=== PATIENT | male | born 2000 | race Caucasian/White ===

== ENCOUNTER 2025-04-12 16:26 | Emergency (ER) | payer BC, SELFPAY ==
[2025-04-12 16:27] VITALS: BMI 25.0
[2025-04-12 16:30] VITALS: BP 145/76; PULSE 64; RESP 16; TEMP 36.7; O2SAT 100
--- NOTE | 2025-04-12 16:37 | XR_ITS ---
Examination: PA chest single view TECHNIQUE: Upright PA chest single view Date and time: April 12, 2025 1641 hours INDICATIONS: Chest pain and shortness of breath today. FINDINGS: Normal heart size. Lungs are clear. Osseous structures are intact. IMPRESSION: No active disease.
--- NOTE | 2025-04-12 16:38 | PD.EDNV ---
Nausea/Vomit./Diarrhea-RME/HPI General Chief complaint: Nausea/Vomiting/Diarrhea Stated complaint: N/V/ABD PAIN SINCE 6AM Time Seen by Provider: 04/12/25 16:36 Arrival date/time: 04/12/25 16:26 RME / HPI RME / HPI Narrative: 24-year-old male patient came in for evaluation regarding vomiting. Patient woke up this morning with vomiting several the last according to him nonbloody. Associated with abdominal discomfort. Patient smoked marijuana on a regular basis. Patient felt super dehydrated. Complained of generalized body weakness. Denies any other complaints. Patient has been here before for the same complaints. Was told that is secondary to marijuana also. Related Data Previous Rx's ?Medication ?Instructions ?Recorded ondansetron HCl 4 mg tablet 4 mg PO Q6H PRN nausea and 04/02/21 (Zofran) vomiting #30 tabs metoclopramide HCl 10 mg tablet 10 mg PO Q6H PRN nausea and 04/12/25 (Reglan) vomiting #20 tabs Allergies Allergy/AdvReac Type Severity Reaction Status Date / Time No Known Allergies Allergy Verified 04/12/25 16:29 Review of Systems Review of Systems Narrative Review of Systems: Review of system reviewed and within normal limits except mentioned in HPI ED Exam Narrative Physical exam: VITAL SIGNS: Reviewed. GENERAL APPEARANCE: Alert and interactive, follows commands, no acute distress, HEAD AND FACE: Non-traumatic. ENT: PERRL, pink conjunctivitis, eyelid no trauma, Mucous membrane dry mucosa NECK: Supple, nontender, no nuchal rigidity. CHEST: No tenderness, no crepitus, no paradoxical movement, no retractions. LUNGS: Clear, well ventilated, symmetric, no rales, no wheezing, no ronchi, no stridor, good breath sounds bilaterally. HEART: Regular rate, regular rhythm, no murmur, no gallops. ABDOMEN: Soft, positive bowel sounds, nondistended, no guarding, nontender, no rebound, no masses, RECTAL: Deferred. GENITAL: Deferred. NEUROLOGICAL: Gross motor function intact sensory function intact, Appropriate for age. MUSCULOSKELETAL: low back nontender, full range of motion. EXTREMITIES: Nontender, full range of motion. SKIN: Color pink, dry, no rash, no lacerations, no abrasions, no contusions. LYMPHATICS: Deferred. Course Quality Measures none Orders Category Date Time Status XR chest 1V Stat Exams 04/12/25 16:37 Completed CBC Stat Lab 04/12/25 16:48 Completed Comprehensive Metabolic Panel Stat Lab 04/12/25 16:48 Completed Drug Screen,Urine Stat Lab 04/12/25 19:02 Completed Partial Thromboplastin Time Stat Lab 04/12/25 16:48 Completed Urinalysis, C/S if Indicated Stat Lab 04/12/25 19:00 Completed Famotidine Inj [Pepcid Inj] Med 04/12/25 16:38 Discontinued 20 mg IVP X1 ONE Haloperidol Lactate [Haldol Inj] Med 04/12/25 16:38 Discontinued 5 mg IM X1 ONE Haloperidol Lactate [Haldol Inj] Med 04/12/25 17:34 Discontinued 5 mg IV X1 ONE Metoclopramide Inj [Reglan Inj] Med 04/12/25 16:37 Discontinued 10 mg IVP X1 ONE Ringers Lactated 1000 ml [Lactated Ringers] 1,000 ml Med 04/12/25 16:37 Discontinued IV 999 mls/hr Ringers Lactated 1000 ml [Lactated Ringers] 1,000 ml Med 04/12/25 16:37 Discontinued IV 999 mls/hr Vital Signs Vital signs: Vital Signs Temperature 98.1 F 04/12/25 16:30 Pulse Rate 64 04/12/25 16:30 Respiratory Rate 16 04/12/25 16:30 Blood Pressure 145/76 H 04/12/25 16:30 Pulse Oximetry (%) 100 04/12/25 16:30 Oxygen Delivery Method Room Air 04/12/25 16:30 Nausea/Vomiting/Diarrhea MDM Narrative MDM Narrative:: 24-year-old male patient came in for evaluation regarding vomiting. Patient woke up this morning with vomiting several the last according to him nonbloody. Associated with abdominal discomfort. Patient smoked marijuana on a regular basis. Patient felt super dehydrated. Complained of generalized body weakness. Denies any other complaints. Patient has been here before for the same complaints. Was told that is secondary to marijuana also. Patient's workup today all came back unremarkable. Urinalysis no UTI. Patient received 2 L of IV fluids, Haldol, Reglan, Pepcid, with complete resolution of symptoms. No recurrence of vomiting noted in the ED. Patient tolerating p.o. fluids. Patient was advised to stop smoking marijuana which could be a reason for his vomiting. Patient agrees with the plan Patient data External records reviewed:: None Clinical information provided by:: patient Social determinants that could affect healthcare access:: substance use Patient has the following chronic illnesses:: None How is presenting disease/condition affected by chronic disease/condition?: no chronic disease Evaluation data The following diagnostics were reviewed and interpreted by me:: lab results and radiology exam(s) Lab and/or radiology exams considered but not ordered:: None Interpretation Summary: Chest x-ray came back unremarkable. No aspiration pneumonia noted. Medications / Prescriptions Medications / Prescriptions considered but not ordered:: None Medication administrations:: Medication Administration History Discontinued Medications Famotidine (Famotidine Inj 10 Mg/Ml Vial 2 Ml) 20 mg IVP X1 ONE Stop: 04/12/25 16:39 Last Admin: 04/12/25 17:46 Dose: 20 mg Documented By: FRAN Haloperidol Lactate (Haloperidol Lact Inj 5 Mg/Ml Vial) 5 mg IM X1 ONE Stop: 04/12/25 16:39 Last Admin: 04/12/25 17:35 Dose: Not Given Documented By: VG Non-Admin Reason: Cancelled by Provider Haloperidol Lactate (Haloperidol Lact Inj 5 Mg/Ml Vial) 5 mg IV X1 ONE Stop: 04/12/25 17:35 Last Admin: 04/12/25 17:47 Dose: 5 mg Documented By: FRAN Lactated Ringer's (Lactated Ringers) 1,000 mls @ 999 mls/hr IV .Q1H1M ONE Stop: 04/12/25 17:37 Last Infusion: 04/12/25 19:04 Dose: Infused Documented By: Admin: 04/12/25 17:41 Dose: 999 mls/hr Documented By: FRAN Lactated Ringer's (Lactated Ringers) 1,000 mls @ 999 mls/hr IV .Q1H1M ONE Stop: 04/12/25 17:37 Last Infusion: 04/12/25 18:53 Dose: Infused Documented By: Admin: 04/12/25 17:42 Dose: 999 mls/hr Documented By: FRAN Metoclopramide HCl (Metoclopramide Inj 5 Mg/Ml Vial 2 Ml) 10 mg IVP X1 ONE; Protocol Stop: 04/12/25 16:38 Last Admin: 04/12/25 17:45 Dose: 10 mg Documented By: VG IV fluids, Haldol Pepcid and Reglan with complete resolution of symptoms Consultations Consultation(s) initiated? (list below): No Diagnosis Nausea Differential Diagnosis: food poisoning, gastroenteritis and drug-induced nausea and vomiting Most likely diagnosis given after review of the tests above:: Cannabinoid hyperemesis syndrome Admission Indicated Admission indicated?: not indicated Admission Request Was there a request for admission?: No Disposition Plan Disposition Plan: Discharge Discharge Attestation Discharge Attestation: The patient and all family members were given an opportunity to ask questions and understood the discharge instructions. Discharge instructions specifically effects, indications for sooner follow up or return to the emergency department, and the expected course of current diagnosis. Patient condition: Stable Discharge Plan Plan Patient Disposition: HOME (Self Care) Discharge Disposition comment: Stable Prescriptions/Referrals Prescriptions/Med Rec: New metoclopramide HCl [Reglan] 10 mg tablet 10 mg PO Q6H PRN (Reason: nausea and vomiting) Qty: 20 0RF No Action ondansetron HCl [Zofran] 4 mg tablet 4 mg PO Q6H PRN (Reason: nausea and vomiting) Qty: 30 0RF Referrals: DENA OVIEDO [Primary Care Provider] - In 1 week Problem List Clinical Impression: Cannabinoid hyperemesis syndrome Patient/Caregiver Discharge Instructions Discharge Activity: activity as tolerated Education Materials: Self-Care for Vomiting and Diarrhea Additional Instructions: Thank you for the opportunity for serving you today. You are stable for discharged . You are advised to: Follow-up with your PCP in 1 to 2 days Return to ED for worsening of symptoms Increase oral fluids Please stop smoking marijuana. Print Language: Hungarian Stand Alone Forms: Cara Award Info., Patient Portal Info Letter PA/SURVEYING OR SPATIAL SCIENCE TECHNICIAN Supervising Physician PA/BLANCA Supervising Physician: MD Riya
[2025-04-12 17:07] LABS: Basophils % (Auto) 0 % (0-2.5); Eosinophils % (Auto) 0 % (0-10); Hematocrit 40.5 % (41.0-53.0); Hemoglobin 14.7 g/dL (13.5-16.0); Immature Granulocytes % (Auto) 0 % (0-0); Immature Granulocytes Auto 0.05 Thou/mm3 (0.00-0.00); Lymphocytes # (Auto) 1.3 Thou/mm3 (1.0-4.8); Lymphocytes % (Auto) 11 % (10-50); Mean Corpuscular HGB Conc 36.3 g/dl (31.0-37.0); Mean Corpuscular Hemoglobin 29.6 pg (25.0-35.0); Mean Corpuscular Volume 82 fL (80-100); Monocytes # (Auto) 0.7 Thou/mm3 (0.0-0.8); Monocytes % (Auto) 6 % (0-12); Neutrophils # (Auto) 9.7 Thou/mm3 (1.8-7.7); Neutrophils % (Auto) 83 % (37-80); Nucleated Red Blood Cell % 0 /100 WBC (0); Platelet Count 318 Thou/mm3 (140-440); RDW Standard Deviation 36.9 fL (35.1-43.9); Red Blood Count 4.96 Miln/mm3 (4.50-5.90); White Blood Count 11.7 Thou/mm3 (3.8-10.6)
[2025-04-12 17:13] LABS: Partial Thromboplastin Time 23.6 Seconds (22.0-36.0)
[2025-04-12 17:22] LABS: Alanine Aminotransferase 25 U/L (10-49); Alkaline Phosphatase 66 U/L (46-116); Anion Gap 13 (7-16); Aspartate Amino Transferase 19 U/L (0-34); BUN/Creatinine Ratio 9 Ratio (12-20); Bilirubin,Total 0.8 mg/dL (0.3-1.2); Blood Urea Nitrogen 10 mg/dL (9-23); Calcium 10.2 mg/dL (8.3-10.6); Calcium (Corrected) 10.2 mg/dL (8.5-10.1); Carbon Dioxide 24.8 mMol/L (20.0-31.0); Chloride 104 mMol/L (98-107); Creatinine (Component) 1.1 mg/dL (0.6-1.3); Estimated Creatinine Clearance 92.6 mL/min (>60); Globulin 2.5 gm/dL (2.3-3.5); Glucose 132 mg/dL (74-106); Osmolality,Calculated 284 (275-295); Potassium 4.2 mMol/L (3.4-5.1); Sodium 142 mMol/L (136-145); Total Protein 7.5 gm/dL (5.7-8.2); eGFR > 60 See Note
[2025-04-12] MEDS: RINGERS LACTATED 1000 ML 1,000 ML 999 ML IV ×2 (17:41→17:42)
[2025-04-12] MEDS: METOCLOPRAMIDE INJ 5 MG/ML VIAL 2 ML 10 MG IVP (17:45)
[2025-04-12] MEDS: FAMOTIDINE INJ 10 MG/ML VIAL 2 ML 20 MG IVP (17:46)
[2025-04-12] MEDS: HALOPERIDOL LACT INJ 5 MG/ML VIAL IV (17:47)
[2025-04-12 18:27] VITALS: BP 115/64; PULSE 62; RESP 15; TEMP 36.8; O2SAT 100
[2025-04-12 19:12] LABS: Collection Type, Urine Clean Catch; Squamous Epithelial Cell,Urine 0 /hpf (0-5)
[2025-04-12 19:20] LABS: Bacteria,Urine Rare; Bilirubin,Urine Negative (Negative); Blood,Urine Negative (Negative); Clarity,Urine Clear (Clear/Hazy); Color,Urine Lt-Yellow (Lt Yel-Yel); Culture Indicated,Urine Not Indicated; Glucose, Urine Negative (Negative); Ketones,Urine 1+ (Negative); Leukocyte Esterase,Urine Negative (Negative); Nitrite,Urine Negative (Negative); Protein,Urine Trace (Neg - Trace); RBC,Urine 1 /hpf (0-3); Specific Gravity,Urine 1.027 (1.001-1.035); Urobilinogen,Urine Negative mg/dL (0.0-1.0); WBC,Urine 1 /hpf (0-5)
[2025-04-12 19:31] LABS: Amphetamine/Methamp Scrn,U Negative (Negative); Barbiturate Screen,Urine Negative (Negative); Benzodiazepines Screen,Urine Negative (Negative); Benzoylecgonine Screen, Ur Negative (Negative); Fentanyl Screen,Urine Negative (Negative); Opiate Screen,Urine Negative (Negative); THC Screen,Urine Positive (Negative)
[2025-04-12 21:12] VITALS: PULSE 99; TEMP 37
== END 2025-04-12 21:13 | disposition home or self-care (01) ==
PROVIDERS: Nurse Practitioner Family; Emergency Provider Emergency Medicine; PCP Nurse Practitioner Family
DX: R11.2 Nausea with vomiting, unspecified (principal); F12.90 Cannabis use, unspecified, uncomplicated; R07.9 Chest pain, unspecified; R06.02 Shortness of breath
CPT/HCPCS: 36415; 71045; 80053; 80307; 81001; 85025; 85730; 96361; 96374; 96375; 99284; J1630; J2765; J3490; J7120